=== PATIENT | female | born 1985 | race Caucasian/White ===

== ENCOUNTER 2020-01-17 09:25 | Emergency (ER) | payer SELFPAY ==
[~2020-01-17] VITALS: Ht 170.1 cm; Wt 62.6 kg
[2020-01-17] MEDS ORDERED: PREDNISONE20 M1 PO (11:29)
[2020-01-17] MEDS ORDERED: ZITHROMAX250 MG PO (11:29)
[2020-01-17] MEDS ORDERED: Tobrex Ophth S2.5 ML OPH (11:34)
== END 2020-01-17 11:49 | disposition home or self-care (01) ==
LOC: ED 09:25
DX: J20.9 Acute bronchitis, unspecified (principal); H10.9 Unspecified conjunctivitis; Z91.041 Radiographic dye allergy status; Z88.5 Allergy status to narcotic agent; Z88.8 Allergy status to other drugs, medicaments and biological substances